=== PATIENT | female | born 1990 | race Caucasian/White ===

== ENCOUNTER 2022-07-07 08:05 | Emergency (ER) | payer MEDICAID, SELFPAY ==
--- NOTE | 2022-07-07 08:19 | EXP.UTC ---
Discharge Plan Disposition Patient Disposition: Home, Self-Care Condition: Good Prescriptions Prescriptions: New amoxicillin [amoxicillin] 500 mg tablet 500 mg PO TID 10 Days Qty: 30 0RF gxvtczgeobgcspv-sbfgsdesx-HT [Bromfed DM] 2-30-10 mg/5 mL Syrup 5 ml PO Q6H PRN (Reason: Cough) Qty: 240 0RF oseltamivir [Tamiflu] 75 mg capsule 75 mg PO BID Qty: 10 0RF methylprednisolone 4 mg Tablets,Dose Pack 4 mg PO DIRECTED Qty: 21 0RF Referrals Follow up/Referrals: Theresa Hunt MD [Primary Care Provider] - See instructions Activity Restrictions/Add. Instructions Additional Instructions/Restrictions: Drink plenty of fluids. Take tylenol or ibuprofen for pain or fever. Take the medications as directed. Follow up with your regular doctor. GO TO THE ER FOR ANY WORSENING SYMPTOMS Throw your tooth brush away and get a new one. Clinical Impressions Clinical Impression: Strep throat, Influenza A Stand Alone Forms Stand Alone Forms: Work/School Release Discharge ED Provider: Solo Solares [facility] General Stated complaint: cough, SOA,Congestion Time Seen by Provider: 07/07/22 08:19 History of Present Illness Provider Complaint: She states that for the past 2 days she has had sore throat, chills, body aches and low grade fever. Related Data Previous Rx's Medication Instructions Recorded amoxicillin 500 mg tablet 500 mg PO TID 10 days #30 tabs 07/07/22 pgtzmwppegpckai-zyndiscdelprikb-IC 5 ml PO Q6H PRN Cough #240 mL 07/07/22 2 mg-30 mg-10 mg/5 mL oral syrup (Bromfed DM) methylprednisolone 4 mg tablets in 4 mg PO DIRECTED #21 tabs 07/07/22 a dose pack oseltamivir 75 mg capsule (Tamiflu) 75 mg PO BID #10 caps 07/07/22 Allergies Allergy/AdvReac Type Severity Reaction Status Date / Time No Known Allergies Allergy Verified 07/07/22 09:26 [facility] Social History Smoking Status: Never smoker alcohol intake: never current occupational status: employed Travel in the last 8 weeks: None ROS Obtained: Yes All systems reviewed & no additional complaints except as documented Constitutional Constitutional: Reports chills and Reports fever(s) Eyes Eyes: Denies eye discharge ENT Ears, Nose, Mouth, and Throat: Reports as per HPI Cardiovascular Cardiovascular: Denies chest pain Respiratory Respiratory: Denies chest congestion and Reports cough Gastrointestinal Gastrointestingal: Reports nausea; Denies abdominal pain, constipation, cramping, diarrhea or vomiting Musculoskeletal Musculoskeletal: Denies arthralgias Integumentary/Breasts Skin/Breast: Denies rash Neurologic Neurologic: Denies paresthesias Physical Exam General General appearance: alert and in no apparent distress Head Head exam: atraumatic, normocephalic and normal inspection Eye Eye exam: Present normal appearance, PERRL and EOMI ENT ENT exam: Present mucous membranes moist and normal external ear exam Expanded ENT Exam TM/Canal exam: Bilateral TM: erythema and bulging Nose exam: Absent sinus tenderness Mouth exam: Present normal external inspection; Absent drooling Teeth exam: Present normal inspection Throat exam: Present tonsillar erythema, tonsillomegaly and tonsillar exudate Neck Neck exam: Present normal inspection, full ROM and trachea midline; Absent tenderness, meningismus or lymphadenopathy Chest Chest inspection: Present normal inspection and symmetric chest wall rise; Absent tenderness Respiratory Respiratory exam: Present normal lung sounds bilaterally; Absent respiratory distress, wheezes or stridor Cardiovascular Cardiovascular exam: Present regular rate and normal rhythm; Absent systolic murmur or diastolic murmur Abdominal Exam Abdominal exam: Present soft and normal bowel sounds; Absent distention, tenderness, guarding, rebound or rigidity Extremities Exam Extremities exam: Present normal inspection and normal capillary r
[2022-07-07 09:23] VITALS: BP 120/72; PULSE 80; RESP 16; TEMP 36.8; O2SAT 96; BMI 24.3
[2022-07-07 09:40] LABS: UTC Influenza A Antigen Positive (Negative); UTC Influenza B Antigen Negative (Negative); UTC Strep Screen (Rapid) Positive (Negative)
[2022-07-07 09:51] VITALS: BP 120/72; PULSE 80; RESP 16; TEMP 36.8
== END 2022-07-07 09:58 | disposition home or self-care (01) ==
PROVIDERS: Emergency Provider Nurse Practitioner Family; PCP Internal Medicine
DX: J02.0 Streptococcal pharyngitis (principal); B95.0 Streptococcus, group A, as the cause of diseases classified elsewhere; J10.1 Influenza due to other identified influenza virus with other respiratory manifestations; R50.9 Fever, unspecified; R06.02 Shortness of breath; M19.90 Unspecified osteoarthritis, unspecified site; R05.9 Cough, unspecified; Z79.52 Long term (current) use of systemic steroids
CPT/HCPCS: 87804; 87880; 99213; G0463

== ENCOUNTER 2022-07-09 07:46 | Emergency (ER) | payer MEDICAID, SELFPAY ==
[2022-07-09 07:46] VITALS: BP 125/78; PULSE 83; RESP 16; TEMP 36.7; O2SAT 100; BMI 25.0
--- NOTE | 2022-07-09 08:06 | HMH.EDGENADL ---
Discharge Plan Disposition Patient Disposition: Home, Self-Care Condition: Good Prescriptions Prescriptions: New methocarbamol 750 mg tablet 750 mg PO Q6H Qty: 30 0RF lidocaine [Lidoderm] 5 % adhesive patch,medicated 1 patch topical DAILY Qty: 30 0RF Rx Instructions: leave on most painful area for up to 12 hrs No Action amoxicillin [amoxicillin] 500 mg tablet 500 mg PO TID 10 Days Qty: 30 0RF ugjuqnchrkglqhf-nhqkahvli-LN [Bromfed DM] 2-30-10 mg/5 mL Syrup 5 ml PO Q6H PRN (Reason: Cough) Qty: 240 0RF oseltamivir [Tamiflu] 75 mg capsule 75 mg PO BID Qty: 10 0RF methylprednisolone 4 mg Tablets,Dose Pack 4 mg PO DIRECTED Qty: 21 0RF Referrals Follow up/Referrals: Theresa Hunt MD [Primary Care Provider] - See instructions Clinical Impressions Clinical Impression: Strain of lumbar region Instructions Patient Instructions: DI for Low Back Pain, Methocarbamol, Lidocaine Transdermal Patch Discharge ED Provider: Pedro Lange General Adult HPI General Chief complaint: Back Pain/Injury Stated complaint: Back pain after coughing Time Seen by Provider: 07/09/22 08:04 History of Present Illness HPI narrative: 32-year-old female, history of degenerative disc disease, chronic lower back pain for which she sees pain specialist is on 5 mg Carlton daily. She presents today with exacerbation of lower back pain that started after coughing yesterday, states she had difficulty walking secondary to pain particularly in the left paraspinal lumbar region and radiating into the left hip. Denies midline tenderness, fevers, history of cancer, IV drug abuse, urinary retention, saddle anesthesia, any numbness or tingling or weakness of the lower extremities. She took 1 [place] this morning without significant relief, does state that back pain limits ambulation. Related Data Previous Rx's Medication Instructions Recorded amoxicillin 500 mg tablet 500 mg PO TID 10 days #30 tabs 07/07/22 vphebzutjwlvogh-vhngkixjtkkupng-YQ 5 ml PO Q6H PRN Cough #240 mL 07/07/22 2 mg-30 mg-10 mg/5 mL oral syrup (Bromfed DM) methylprednisolone 4 mg tablets in 4 mg PO DIRECTED #21 tabs 11/29/22 a dose pack oseltamivir 75 mg capsule (Tamiflu) 75 mg PO BID #10 caps 07/07/22 lidocaine 5 % topical patch 1 patch topical DAILY #30 ea 07/09/22 (Lidoderm) methocarbamol 750 mg tablet 750 mg PO Q6H #30 tabs 07/09/22 Allergies Allergy/AdvReac Type Severity Reaction Status Date / Time No Known Allergies Allergy Verified 07/07/22 09:26 [facility] Disclaimer: The information contained in this section may have been updated after the patient was seen, as this information can be updated by other users. Social History Smoking Status: Never smoker alcohol intake: never current occupational status: employed Travel in the last 8 weeks: None ROS Obtained: Yes Systems reviewed as appropriate & no additional complaints except as documented Constitutional Constitutional: Reports system reviewed and no additional complaints, except as documented Eyes Eyes: Reports system reviewed and no additional complaints, except as documented ENT Ears, Nose, Mouth, and Throat: Reports system reviewed and no additional complaints, except as documented Cardiovascular Cardiovascular: Reports system reviewed and no additional complaints, except as documented Respiratory Respiratory: Reports system reviewed and no additional complaints, except as documented Gastrointestinal Gastrointestingal: Reports system reviewed and no additional complaints, except as documented Genitourinary Female Genitourinary: Reports system reviewed and no additional complaints, except as documented Musculoskeletal Musculoskeletal: Reports system reviewed and no additional complaints, except as documented Integumentary/Breasts Skin/Breast: Reports system reviewed and no additional complaints, exce
--- NOTE | 2022-07-09 08:08 | PC.NURSE ---
SHON FLORES at
--- NOTE | 2022-07-09 08:12 | XR_ITS ---
FINAL REPORT CLINICAL HISTORY: Pt coughed yesterday and felt lwr back pop , c/o shooting pains down Lt leg FINDINGS: LUMBAR SPINE Three views were obtained. There is no acute fracture. There is no malalignment. The disc spaces are preserved. There is no soft tissue abnormality. IMPRESSION: No acute bony abnormality. Reviewed, Interpreted and Dictated by Gustabo Whatley MD Transcribed by Ainsley Eisenberg Authenticated and [facility]
[2022-07-09 09:44] VITALS: BP 118/66; PULSE 71; RESP 18; TEMP 36.7; O2SAT 100
== END 2022-07-09 09:44 | disposition home or self-care (01) ==
PROVIDERS: Emergency Provider Emergency Medicine; PCP Internal Medicine
DX: S39.012A Strain of muscle, fascia and tendon of lower back, initial encounter (principal)
CPT/HCPCS: 72100; 99283

== ENCOUNTER 2022-11-24 08:08 | Emergency (ER) | payer MEDICAID, SELFPAY ==
[2022-11-24 08:10] VITALS: BP 122/73; PULSE 83; RESP 20; TEMP 37.2; O2SAT 97; BMI 26.6
--- NOTE | 2022-11-24 08:26 | EXP.UTC ---
Discharge Plan Disposition Patient Disposition: Home, Self-Care Condition: Good Prescriptions Prescriptions: New azithromycin [Zithromax] 250 mg tablet 250 mg PO UD DOSE PK Qty: 6 0RF Rx Instructions: Take two (2) tablets today, then one (1) tablet days #2 thru #5 ntjbgjoxhyykmga-getwutjot-YI [Bromfed DM] 2-30-10 mg/5 mL Syrup 5 ml PO Q6H PRN (Reason: Cough) Qty: 240 0RF methylprednisolone 4 mg Tablets,Dose Pack 4 mg PO DIRECTED Qty: 21 0RF No Action methocarbamol 750 mg tablet 750 mg PO Q6H Qty: 30 0RF lidocaine [Lidoderm] 5 % adhesive patch,medicated 1 patch topical DAILY Qty: 30 0RF Rx Instructions: leave on most painful area for up to 12 hrs gabapentin 600 mg tablet 600 mg PO QID tizanidine 4 mg tablet 4 mg PO DAILY levothyroxine 100 mcg tablet 100 mcg PO DAILY amitriptyline 10 mg tablet 10 mg PO DAILY Label Comments: TAKE 1 TABLET BY MOUTH EVERY DAY sertraline 50 mg tablet 50 mg PO DAILY Label Comments: TAKE 1 TABLET BY MOUTH DAILY DIRECTED Vraylar 1.5 mg capsule See Rx Instructions .ROUTE .COMPLEX Label Comments: TAKE 1 CAPSULE BY MOUTH EVERY OTHER DAY IN THE MORNING Rx Instructions: TAKE 1 CAPSULE BY MOUTH EVERY OTHER DAY IN THE MORNING Referrals Follow up/Referrals: Theresa Hunt MD [Primary Care Provider] - See instructions Activity Restrictions/Add. Instructions Additional Instructions/Restrictions: Drink plenty of fluids. Take tylenol or ibuprofen for pain or fever. Take the medications as directed. Follow up with your regular doctor. GO TO THE ER FOR ANY WORSENING SYMPTOMS Quarantine until you know the results of your covid-19 test. Notify your school or workplace of your results and follow their instructions regarding return to work/school. Clinical Impressions Clinical Impression: Bronchitis, Acute viral syndrome Stand Alone Forms Stand Alone Forms: Work/School Release Instructions Patient Instructions: Acute Bronchitis, DI for Acute Bronchitis, DI for Viral Syndrome Discharge ED Provider: Solo Solares [facility] HPI General Stated complaint: Cough, headache, loss taste/smell, bodyaches Mode of Arrival: Ambulatory Source of Information: Patient Limitations: No Limitations Time Seen by Provider: 11/24/22 08:25 Description of Symptoms (Recalled from Triage Doc. by RN): cough, fever, no taste or smell, congestion, sore throat, PALM, and body aches HEENT Symptoms (Recalled from RN notes): Yes Resp Symptoms (Recalled from RN notes): No Skin Symptoms (Recalled from RN notes): No MS Symptoms (Recalled from RN notes): No Functional Status (Recalled from RN notes): n/a History of Present Illness Provider Complaint: She states that for the past 2 days she has had sore throat, chills, body aches and low grade fever. She also reports that she has had decreased sense of taste and smell for the past 1 day. Related Data Home Medications Medication Instructions Recorded Confirmed amitriptyline 10 mg tablet 10 mg PO DAILY , 11/24/22 11/24/22 cariprazine 1.5 mg capsule See Rx Instructions .Route 11/24/22 11/24/22 (Vraylar) .COMPLEX . gabapentin 600 mg tablet 600 mg PO QID . 11/24/22 11/24/22 levothyroxine 100 mcg tablet 100 mcg PO DAILY Supplement 11/24/22 11/24/22 sertraline 50 mg tablet 50 mg PO DAILY Depression 11/24/22 11/24/22 tizanidine 4 mg tablet 4 mg PO DAILY Pain 11/24/22 11/24/22 Previous Rx's Medication Instructions Recorded lidocaine 5 % topical patch 1 patch topical DAILY #30 ea 07/09/22 (Lidoderm) methocarbamol 750 mg tablet 750 mg PO Q6H #30 tabs 07/09/22 azithromycin 250 mg tablet 250 mg PO UD DOSE PK #6 tabs 11/24/22 (Zithromax) rctbxvecgkponnh-tcvlaikssxauvlh-OU 5 ml PO Q6H PRN Cough #240 mL 11/24/22 2 mg-30 mg-10 mg/5 mL oral syrup (Bromfed DM) methylprednisolone 4 mg tablets in 4 mg PO DIRECTED #21 tabs 11/24/22 a dose pack
[2022-11-24 08:31] LABS: UTC Strep Screen (Rapid) Negative (Negative)
[2022-11-24 08:45] LABS: Adenovirus,PCR Not Detected (NotDetected); Bordetella Pertussis Not Detected (NotDetected); Chlamydophila Pneumoniae, PCR Not Detected (NotDetected); Coronavirus 19, PCR Not Detected (NotDetected); Coronavirus 229E Not Detected (NotDetected); Coronavirus NL63 Not Detected (NotDetected); Coronavirus OC43 Not Detected (NotDetected); Coronovirus HKU1,PCR Not Detected (NotDetected); Human Metapneumovirus Not Detected (NotDetected); Influenza A, PCR Not Detected (NotDetected); Influenza AH1, PCR Not Detected (NotDetected); Influenza AH3,PCR Not Detected (NotDetected); Influenza B, PCR Not Detected (NotDetected); Mycoplasma Pneumoniae, PCR Not Detected (NotDetected); Parainfluenza 1, PCR Not Detected (NotDetected); Parainfluenza 2, PCR Not Detected (NotDetected); Parainfluenza 3, PCR Not Detected (NotDetected); Parainfluenza 4, PCR Not Detected (NotDetected); Respiratory Syncytial Virus Not Detected (NotDetected); Rhinovirus/Enterovirus Not Detected (NotDetected)
[2022-11-24 08:56] VITALS: BP 122/73; PULSE 83; RESP 20; TEMP 37.2; O2SAT 97
[2022-11-24 11:27] LABS: Influenza AH1, 2009 Detected (NotDetected)
== END 2022-11-24 08:54 | disposition home or self-care (01) ==
PROVIDERS: Emergency Provider Nurse Practitioner Family; PCP Internal Medicine
DX: J20.9 Acute bronchitis, unspecified (principal); R50.9 Fever, unspecified; R51.9 Headache, unspecified
CPT/HCPCS: 87581; 87632; 87798; 87880; 99212; 99214; C9803; G0463; U0003; U0005

== ENCOUNTER 2022-12-09 08:21 | Emergency (ER) | payer MEDICAID, SELFPAY ==
[2022-12-09 08:41] VITALS: BP 109/73; PULSE 82; RESP 18; TEMP 37.1; O2SAT 98; BMI 28.9
--- NOTE | 2022-12-09 08:49 | EXP.UTC ---
Discharge Plan Disposition Patient Disposition: Home, Self-Care Condition: Good Prescriptions Prescriptions: New methylprednisolone [Medrol (Luis Enrique)] 4 mg tablets,dose pack See Rx Instructions .Route .COMPLEX 6 Days Qty: 21 0RF Rx Instructions: taper pack; guaifenesin [Mucinex] 600 mg tablet extended release 12hr 600 mg PO BID PRN (Reason: cough) Qty: 20 0RF No Action methocarbamol 750 mg tablet 750 mg PO Q6H Qty: 30 0RF lidocaine [Lidoderm] 5 % adhesive patch,medicated 1 patch topical DAILY Qty: 30 0RF Rx Instructions: leave on most painful area for up to 12 hrs gabapentin 600 mg tablet 600 mg PO QID tizanidine 4 mg tablet 4 mg PO DAILY levothyroxine 100 mcg tablet 100 mcg PO DAILY amitriptyline 10 mg tablet 10 mg PO DAILY Label Comments: TAKE 1 TABLET BY MOUTH EVERY DAY sertraline 50 mg tablet 50 mg PO DAILY Label Comments: TAKE 1 TABLET BY MOUTH DAILY DIRECTED Vraylar 1.5 mg capsule See Rx Instructions .ROUTE .COMPLEX Label Comments: TAKE 1 CAPSULE BY MOUTH EVERY OTHER DAY IN THE MORNING Rx Instructions: TAKE 1 CAPSULE BY MOUTH EVERY OTHER DAY IN THE MORNING azithromycin [Zithromax] 250 mg tablet 250 mg PO UD DOSE PK Qty: 6 0RF Rx Instructions: Take two (2) tablets today, then one (1) tablet days #2 thru #5 iahmtgefbyrztjd-nbroekpew-KW [Bromfed DM] 2-30-10 mg/5 mL Syrup 5 ml PO Q6H PRN (Reason: Cough) Qty: 240 0RF methylprednisolone 4 mg Tablets,Dose Pack 4 mg PO DIRECTED Qty: 21 0RF Referrals Follow up/Referrals: Theresa Hunt MD [Primary Care Provider] - See instructions Activity Restrictions/Add. Instructions Additional Instructions/Restrictions: *Monitor Temp, Over the counter Motrin or Tylenol as directed/as needed if you can take them Tylenol every 4 hours and Motrin every 6 hours (as long as your family doctor has told you that you can take it) for fever or pain. and straight to ER if unable to lower temp less than 101.0 after medication given *Warm salt water gargles may help to soothe the throat *Throat Lozenges? *Warm fluids like tea with honey may help to soothe the throat? *Sleep elevated *Humidifier/Vaporizer Follow up IMMEDIATELY for new or worsening symptoms or no Noticeable improvement over the next 48-72 hours. 911 for difficulty breathing or swallowing Clinical Impressions Clinical Impression: Pleurisy Instructions Patient Instructions: DI for Pleurisy, Pleurisy Discharge ED Provider: Jessie Adame [facility] HPI General Stated complaint: cough, lung pain, soa Mode of Arrival: Ambulatory Source of Information: Patient Limitations: No Limitations Time Seen by Provider: 12/09/22 09:03 Description of Symptoms (Recalled from Triage Doc. by RN): pt c/o a cough, tightness in her L lung and SOA x2 days. HEENT Symptoms (Recalled from RN notes): No Resp Symptoms (Recalled from RN notes): Yes Skin Symptoms (Recalled from RN notes): No MS Symptoms (Recalled from RN notes): No Functional Status (Recalled from RN notes): wnl History of Present Illness Provider Complaint: Patient states that she had flu a couple weeks ago and then seen her PCP and they thought she may have had Pneumonia and put her on antibiotics States that she finished her antibiotics but still having cough and pain when she coughs and at times feeling a little SOA, worried that the antibiotics didnt clear her pneumonia so she came back in today to get checked Related Data Home Medications Medication Instructions Recorded Confirmed amitriptyline 10 mg tablet 10 mg PO DAILY , 11/24/22 11/24/22 cariprazine 1.5 mg capsule See Rx Instructions .Route 11/24/22 11/24/22 ([place]) .COMPLEX . gabapentin 600 mg tablet 600 mg PO QID . 11/24/22 11/24/22 levothyroxine 100 mcg tablet 100 mcg PO DAILY Supplement 11/24/22 11/24/22 sertraline 50 mg tablet 50 mg PO DAILY Depression
--- NOTE | 2022-12-09 08:52 | XR_ITS ---
FINAL REPORT CLINICAL HISTORY: congestion FINDINGS: TWO-VIEW CHEST The heart size is normal. The mediastinum is normal. The lungs are clear. There is no pneumothorax. IMPRESSION: No acute cardiopulmonary process. Reviewed, Interpreted and Dictated by Gustabo Whatley MD Transcribed by Shawna Alex Authenticated and . [facility]
[2022-12-09 10:18] VITALS: BP 109/73; PULSE 82; RESP 18; TEMP 37.1
== END 2022-12-09 10:26 | disposition home or self-care (01) ==
PROVIDERS: Emergency Provider Nurse Practitioner; PCP Internal Medicine
DX: R09.1 Pleurisy (principal); R06.02 Shortness of breath; R05.1 Acute cough
CPT/HCPCS: 71046; 99212; 99214; G0463

== ENCOUNTER 2023-07-29 14:15 | Emergency (ER) | payer BC, MEDICAID, SELFPAY ==
[2023-07-29 14:30] VITALS: BP 118/70; PULSE 98; RESP 20; TEMP 37.1; O2SAT 97; BMI 30.5
--- NOTE | 2023-07-29 14:31 | EXP.UTC ---
Discharge Plan Disposition Patient Disposition: Home, Self-Care Condition: Good Prescriptions Prescriptions: New helstdpsqezzsbn-ieiftjxxs-KK [Bromfed DM] 2-30-10 mg/5 mL Syrup 5 ml PO Q6H PRN (Reason: Cough) Qty: 240 0RF ondansetron 4 mg Tablet,Disintegrating 4 mg PO Q8H PRN (Reason: Nausea) Qty: 12 0RF No Action gabapentin 600 mg tablet 600 mg PO QID tizanidine 4 mg tablet 4 mg PO DAILY levothyroxine 100 mcg tablet 100 mcg PO DAILY sertraline 50 mg tablet 50 mg PO DAILY Patient Comments: TAKE 1 TABLET BY MOUTH DAILY DIRECTED Vraylar 1.5 mg capsule 1.5 mg PO DAILY Patient Comments: TAKE 1 CAPSULE BY MOUTH EVERY OTHER DAY IN THE MORNING Rx Instructions: TAKE 1 CAPSULE BY MOUTH EVERY OTHER DAY IN THE MORNING ropinirole 0.5 mg tablet 0.5 mg PO HS pyridoxine (vitamin B6) 50 mg tablet 50 mg PO DAILY Patient Comments: TAKE 1 TABLET BY MOUTH EVERY DAY cholecalciferol (vitamin D3) [Vitamin D3] 50 mcg (2,000 unit) tablet 50 mcg PO DAILY Referrals Follow up/Referrals: Theresa Hunt MD [Primary Care Provider] - See instructions Activity Restrictions/Add. Instructions Additional Instructions/Restrictions: Drink plenty of fluids. Take tylenol or ibuprofen for pain or fever. Take the medications as directed. Follow up with your regular doctor. GO TO THE ER FOR ANY WORSENING SYMPTOMS Clinical Impressions Clinical Impression: Acute viral syndrome Instructions Patient Instructions: DI for Respiratory Syncytial Virus -- Adults, DI for Viral Syndrome Discharge ED Provider: Solo Solares [facility] General Stated complaint: cough,headache,body aches Time Seen by Provider: 07/29/23 14:31 History of Present Illness Provider Complaint: She states that for the past 3 days she has has had headache, chills, scratchy throat, runny nose, and malaise. Her daughter had rsv last week. She denies shortness of breath and significant cough. Related Data Home Medications Medication Instructions Recorded Confirmed cariprazine 1.5 mg capsule 1.5 mg PO DAILY 11/24/22 07/29/23 (Vraylar) gabapentin 600 mg tablet 600 mg PO QID 11/24/22 07/29/23 levothyroxine 100 mcg tablet 100 mcg PO DAILY Supplement 11/24/22 07/29/23 sertraline 50 mg tablet 50 mg PO DAILY Depression 11/24/22 07/29/23 tizanidine 4 mg tablet 4 mg PO DAILY Pain 11/24/22 07/29/23 cholecalciferol (vitamin D3) 50 50 mcg PO DAILY 07/29/23 07/29/23 mcg (2,000 unit) tablet (Vitamin D3) pyridoxine (vitamin B6) 50 mg 50 mg PO DAILY 07/29/23 07/29/23 tablet ropinirole 0.5 mg tablet 0.5 mg PO HS 07/29/23 07/29/23 Previous Rx's Medication Instructions Recorded lgrairytwlioyoa-cavqfsjbszakrjn-SI 5 ml PO Q6H PRN Cough #240 mL 07/29/23 2 mg-30 mg-10 mg/5 mL oral syrup (Bromfed DM) ondansetron 4 mg disintegrating 4 mg PO Q8H PRN Nausea #12 tabs 07/29/23 tablet Allergies Allergy/AdvReac Type Severity Reaction Status Date / Time acetaminophen [From Percocet] Allergy Verified 12/09/22 08:46 morphine Allergy Verified 12/09/22 08:46 oxycodone [From Percocet] Allergy Verified 12/09/22 08:46 tramadol [From Ultram] Allergy Verified 12/09/22 08:46 PFSH PFSH Disclaimer: The information contained in this section may have been updated after the patient was seen, as this information can be updated by other users. Medical History (Updated 07/29/23 @ 15:07 by Solo Solares APRN) Anxiety Depression Kidney stone Migraine Thyroid disease Urinary tract infection Surgical History (Updated 07/29/23 @ 14:50 by Donna Sheldon RN) History of section History of tubal ligation Social History Smoking Status: Never smoker alcohol intake: never current occupational status: employed Travel in the last 8 weeks: None ROS Obtained: Yes All systems reviewed & no additional c
[2023-07-29 15:01] LABS: UTC Strep Screen (Rapid) Negative (Negative)
[2023-07-29 15:03] LABS: UTC Influenza A Antigen Negative (Negative); UTC Influenza B Antigen Negative (Negative)
[2023-07-29 15:18] VITALS: BP 118/70; PULSE 98; RESP 20; TEMP 37.1; O2SAT 97
== END 2023-07-29 15:23 | disposition home or self-care (01) ==
PROVIDERS: Emergency Provider Nurse Practitioner Family; PCP Internal Medicine
DX: R05.9 Cough, unspecified (principal); R51.9 Headache, unspecified; R50.9 Fever, unspecified; R07.0 Pain in throat; R09.81 Nasal congestion; R11.0 Nausea; R53.81 Other malaise; M79.18 Myalgia, other site; B34.9 Viral infection, unspecified; E03.9 Hypothyroidism, unspecified
CPT/HCPCS: 87635; 87804; 87880; 99212; 99214; G0463